=== PATIENT | female | born 1980 | race Two or more races ===

== ENCOUNTER 2024-06-23 13:29 | Outpatient (RCR) | payer MEDICAID, SELFPAY ==
--- NOTE | 2024-06-23 13:45 | PTNOTE_ITS ---
PT OP Initial Eval Patient Information Outpatient Physical Therapy Treatment Date: 06/23/24 Visit Reasons: lEFT KNEE PAIN Medical Diagnosis: M25.562 Start of Care: 06/23/24 Date of Onset: February 2024 Smoking Status Smoking Status: Never smoker Initial Assessment Subjective: Pt is 44 yr old albanian speaking female with c/o L knee pain for many years but worse since February. Increased pain with stairs, squats, lifting things. She can do HH chores but doesn't feel like she can jog since it feels like it's going to injure it. PMH: C-sections x3 Imaging: none of L knee Pt goal: to not hurt with ADL's. Objective: L knee AROM: ? Flexion: full ? Extension: full ? SLR: 85 deg ? Strength: L quads 4/5 limited by patella compression pain, hamstrings 4/5 Crepitus: significant with knee extension Anterior drawer: negative Eufemia's: negative Pivot shift: positive Varus/valgus: WNL Assessment: Pt presents with significant crepitus of L knee under patella with knee extension in sitting. Pt will not likely benefit from physical therapy and pt has poor rehab potential to meet goals due to this. She has good strength of L quads and HS so this is not a strength deficit issue, it's likely a cartilaginous issue of the patella. She may benefit from orthopedic evaluation and further diagnostic imaging of L knee. Short Term and Technical Instructor Course Developer Goals Eval and D/C Treatment Plan Eval and D/C Certification Dates: 06/24/24 to 06/28/24 Procedure Charges OP PT Eval Mod Complex 30 minutes: Yes
== END 2024-07-18 23:59 | disposition home or self-care (01) ==
LOC: CPTX 13:29
PROVIDERS: PCP Nurse Practitioner Family; Referring Provider Nurse Practitioner Family; Visit Provider Nurse Practitioner Family
DX: M25.562 Pain in left knee (principal)
CPT/HCPCS: 97162